=== PATIENT | male | born 1965 | race Caucasian/White ===

== ENCOUNTER → 2018-11-24 | Outpatient (CLI) | payer OTHER ==
[~2018-11-24] MED LIST: ALTACE; AMBIEN 5 MG TABL5 M1 PO; CLONAZEPAM 1 MG1 M1; FLEXERIL PO; HYDROCODONE-AP1 EAC6 PO; LOPRESSOR 12.12.5 MG PO; LUNESTA; MEDROLDOSEPACK PO; PAXIL10 MG PO; PHENERGAN25 M2 RC
== END ==
LOC: M.MRI 17:01
DX: M47.26 Other spondylosis with radiculopathy, lumbar region (principal); M51.27 Other intervertebral disc displacement, lumbosacral region; M51.16 Intervertebral disc disorders with radiculopathy, lumbar region; E11.9 Type 2 diabetes mellitus without complications; F32.1 Major depressive disorder, single episode, moderate; I10 Essential (primary) hypertension; Z87.891 Personal history of nicotine dependence

== ENCOUNTER → 2021-12-17 | Outpatient (CLI) | payer OTHER | LOC: M.ULTRA 08:00 | PROVIDERS: ATTEND Internal Medicine | DX: R31.29 Other microscopic hematuria (principal); E11.69 Type 2 diabetes mellitus with other specified complication ==